=== PATIENT | female | born 1980 | race Caucasian/White ===

== ENCOUNTER 2021-02-11 18:25 | Emergency (ER) | payer OTHER, SELFPAY ==
--- NOTE | ~2021-02-11 | XR_ITS ---
EXAMINATION: XR chest 2V 02/11/2021 19:08 INDICATION: Sternal chest pain PROCEDURE: 2 view chest COMPARISON: No prior studies for comparison. FINDINGS: The lungs are clear. The cardiomediastinal silhouette is within normal limits. There are no pleural effusions. There is no pneumothorax suspected. The lungs are mildly hyperinflated, whic h can be associated with reactive airway disease. IMPRESSION: 1: NO ACUTE CARDIOPULMONARY DISEASE. Reviewed, dictated and finalized at location A.
--- NOTE | 2021-02-11 18:27 | ECG_ITS ---
Measurements Intervals [place] Rate: 95 P: 49 AL: 176 QRS: 120 QRSD: 91 T: 55 QT: 346 QTc: 436 Interpretive Statements SINUS RHYTHM RIGHT AXIS DEVIATION LOW QRS VOLTAGE IN LIMB LEADS CANNOT RULE OUT SEPTAL INFARCT, AGE INDETERMINATE BASELINE ARTIFACT- I, II, AVR, V1, V3-V6 ABNORMAL ECG Electronically Signed On 02-11-2021 19:51:52 CDT by Walter Mendez D.O.
[2021-02-11 18:28] VITALS: BP 71/47; PULSE 136; RESP 18; TEMP 36.9; O2SAT 100
[2021-02-11 18:31] VITALS: BP 96/65; PULSE 136; RESP 18; O2SAT 100
[2021-02-11 18:35] VITALS: BP 122/66; PULSE 109; RESP 29; O2SAT 100
[2021-02-11 18:38] VITALS: PULSE 91
[2021-02-11 19:08] LABS: Basophils Percent Auto 0.5 % (0.2-1.2); Eosinophils Absolute Auto 0.1 K/mm3 (0-0.3); Eosinophils Percent Auto 1.4 % (0-4.4); Hematocrit 36.7 % (37.0-47.0); Hemoglobin 11.7 g/dL (12.0-15.0); Immature Granulocyte Absolute 0.01 K/mm3 (0.00-0.031); Immature Granulocyte Percent A 0.2 % (0-0.5); Lymphocytes Absolute Auto 1.84 K/mm3 (0.9-3.2); Lymphocytes Percent Auto 28.8 % (18.3-44.2); Mean Corpuscular HGB Conc 31.9 g/dl (32-36); Mean Corpuscular Hemoglobin 27.9 pg (26-34); Mean Corpuscular Volume 87.6 fl (80-100); Mean Platelet Volume 11.1 fl (7.4-10.4); Monocytes Absolute Auto 0.4 K/mm3 (0.1-0.6); Monocytes Percent Auto 6.4 % (2.6-8.5); Neutrophils Percent Auto 62.7 % (45.5-73.1); Platelet Count Result 298 k/mm3 (150-375); Red Blood Count 4.19 M/mm3 (4.2-5.4); Red Cell Distribution Width 13.5 % (11.5-14.5); White Blood Count 6.4 K/mm3 (4.5-10.0)
[2021-02-11 19:16] LABS: Anion Gap 10 mmol/L (8-16); Blood Urea Nitrogen 7 mg/dL (7-17); Calcium 9.4 mg/dL (8.4-10.2); Carbon Dioxide 28 mmol/L (22-30); Chloride 102 mmol/L (98-107); Estimated CRCL calculation 84 ml/min; Estimated Glomerular Filt Rate > 60; Glucose 120 mg/dL (65-105); Potassium 3.5 mmol/L (3.4-5.0); Sodium 140 mmol/L (137-145)
[2021-02-11 19:26] LABS: Prothrombin Time 13.4 Seconds (11.1-14.7)
[2021-02-11 19:28] LABS: Partial Thromboplastin Time 28.9 SECONDS (22.3-36.8); Troponin I < 0.012 ng/mL (0.000-0.034)
--- NOTE | 2021-02-11 20:06 | ED.CHESTPAIN ---
HPI - Chest Pain General Chief Complaint: Chest Pain Stated Complaint: chest pain Time Seen by Provider: 02/11/21 18:55 History of Present Illness HPI narrative: Patient is a 40-year-old female with history of cardiac vasospasm who presents ER with chest pain. Left-sided upper chest. Began while walking in [place]. Reports she has been under significant stress because she just moved here from [place] and no one in her family is adjusting well. She reports she took 3 nitros at 15-minute intervals with brief improvement but then return of symptoms. Patient's last cardiac catheterization was in 2018 in [facility]. She reports she has no coronary disease just spasm. She takes amlodipine and metoprolol as well as nitroglycerin to help with her symptoms. She denies any fevers or chills or sweats. No nausea or vomiting. She reports she is feeling lightheaded and that she has some tingling in her fingers. She does not think she is anxious so she did not take her alprazolam. Related Data Home Medications Medication Instructions Recorded Confirmed amlodipine 2.5 mg PO DAILY 02/11/21 02/11/21 nitroglycerin [Nitro-Transderm] 02/11/21 Allergies Allergy/AdvReac Type Severity Reaction Status Date / Time Penicillins Allergy Anaphylactic Verified 02/11/21 19:18 Shock Review of Systems Review of Systems: All systems reviewed & are unremarkable except as noted in HPI and below Constitutional: Constitutional: Denies chills, Denies fever(s) and Denies weakness Cardiovascular: Cardiovascular: Reports chest pain, Denies rapid heart rate and Denies radiating jaw, neck or arm pain Respiratory: Respiratory: Denies cough, Denies dyspnea and Denies wheezing Gastrointestinal: Gastrointestinal: Denies abdominal pain, Denies nausea and Denies vomiting PMFSH Past Medical History Medical History (Updated 02/11/21 @ 23:31 by Iban Peres MD) Coronary vasospasm Surgical History Surgical History (Updated 02/11/21 @ 20:08 by Iban Peres MD) H/O cardiac catheterization H/O section Social History Social History (Updated 02/11/21 @ 20:08 by Iban Peres MD) Smoking status: Never smoker Gender identity (if verbalized by the patient): Female Exam Narrative: Exam Narrative: GENERAL: Anxious-appearing, well-nourished, and in no acute distress. HEAD: Normocephalic, atraumatic. EYES: PERRL and EOMI. CHEST: Clear to auscultation. No respiratory distress. HEART: Regular rate and rhythm. Normal peripheral pulses. ABDOMEN: Soft, nontender, nondistended. EXTREMITIES: Normal range of motion. No edema. SKIN: Warm, dry, no rash. NEURO: Alert and oriented x3. PSYCH: Normal mood and affect. Course Course Emergency Course: Chest pain gone. Troponins undetectable. Discharge home with cardiology and PCP referral. Vital Signs Vital signs: Vital Signs Temperature 98.4 F 02/11/21 18:28 Pulse Rate 136 H 02/11/21 18:28 Respiratory Rate 18 02/11/21 18:28 Blood Pressure 71/47 L 02/11/21 18:28 Pulse Oximetry 100 02/11/21 18:28 Temperature 98.4 F 02/11/21 18:28 Pulse Rate 87 02/11/21 21:21 Respiratory Rate 18 02/11/21 21:21 Blood Pressure 116/61 02/11/21 21:21 Pulse Oximetry 100 02/11/21 21:21 MDM - Chest Pain Lab Data Result diagrams: 02/11/21 18:38 02/11/21 18:38 Labs: Lab Results 02/11/21 02/11/21 02/11/21 Range/Units 18:38 18:38 18:38 WBC 6.4 (4.5-10.0) K/mm3 RBC 4.19 L (4.2-5.4) M/mm3 Hgb 11.7 L (12.0-15.0) g/dL Hct 36.7 L (37.0-47.0) % MCV 87.6 (80-100) fl MCH 27.9 (26-34) pg MCHC 31.9 L (32-36) g/dl RDW 13.5 (11.5-14.5) % Plt Count 298 (150-375) k/mm3 MPV 11.1 H (7.4-10.4) fl Immature Gran % (Auto) 0.2 (0-0.5) % Neut % (Auto) 62.7 (45.5-73.1) % Lymph % (Auto) 28.8 (18.3-44.2) % [place] % (Auto) 6.4 (2.6-8.5) % Eos % (Auto) 1.4 (0-4.4) % Baso % (
[2021-02-11 20:27] LABS: Alveolar/Arterial O2 Gradient 36.6 mmHg; Base Excess ABG 0.5 mEq/l (+/-2.0); Carboxyhemoglobin 0.3 % THb (0-2.0); Fractional Inspired Oxygen 21 %; HCO3 ABG 23.2 mEq/l (22.0-26.0); Methemoglobin ABG 0.1 %THb (0-1.5); Oxygen Content ABG 16.2 %vol (16.0-22.0); Oxyhemoglobin 97.9 % THb (90.0-100.0); PCO2 ABG 31.1 mmHg (35.0-45.0); PO2 ABG 142.7 mmHg (80.0-100.0); Reduced Hemoglobin 1.7 %THb (0-5.0); Total Hemoglobin 11.6 g/dL (12.0-18.0)
[2021-02-11 20:28] LABS: Device ROOM AIR; Modified Allen's Test Pass; Site Drawn RIGHT BRACHIAL
[2021-02-11 21:21] VITALS: BP 116/61; PULSE 87; RESP 18; O2SAT 100
[2021-02-11 22:09] LABS: Troponin I < 0.012 ng/mL (0.000-0.034)
[2021-02-11 23:37] VITALS: BP 118/77; PULSE 80; RESP 18; O2SAT 99
== END 2021-02-11 23:45 | disposition home or self-care (01) ==
PROVIDERS: Emergency Medicine; Emergency Provider Emergency Medicine
DX: R07.9 Chest pain, unspecified (principal); I73.9 Peripheral vascular disease, unspecified; R94.31 Abnormal electrocardiogram [ECG] [EKG]
CPT/HCPCS: 36415; 36600; 71046; 80048; 82375; 82805; 83050; 84484; 85025; 85610; 85730; 93005; 99284

== ENCOUNTER 2022-07-03 10:15 | Emergency (ER) | payer OTHER, SELFPAY ==
[2022-07-03 10:20] VITALS: BP 98/64; PULSE 81; RESP 16; TEMP 36.4; O2SAT 100
[2022-07-03 10:41] LABS: Basophils Percent Auto 0.6 % (0.2-1.2); Eosinophils Absolute Auto 0.1 K/mm3 (0-0.3); Eosinophils Percent Auto 1.7 % (0-4.4); Hematocrit 35.1 % (37.0-47.0); Hemoglobin 11.1 g/dL (12.0-15.0); Immature Granulocyte Absolute 0.01 K/mm3 (0.00-0.031); Immature Granulocyte Percent A 0.3 % (0-0.5); Lymphocytes Absolute Auto 1.12 K/mm3 (0.9-3.2); Lymphocytes Percent Auto 32.5 % (18.3-44.2); Mean Corpuscular HGB Conc 31.6 g/dl (32-36); Mean Corpuscular Hemoglobin 28.6 pg (26-34); Mean Corpuscular Volume 90.5 fl (80-100); Mean Platelet Volume 10.8 fl (7.4-10.4); Monocytes Absolute Auto 0.3 K/mm3 (0.1-0.6); Monocytes Percent Auto 8.7 % (2.6-8.5); Neutrophils Absolute Auto 1.9 K/mm3 (1.3-6.7); Neutrophils Percent Auto 56.2 % (45.5-73.1); Platelet Count Result 207 k/mm3 (150-375); Red Blood Count 3.88 M/mm3 (4.2-5.4); Red Cell Distribution Width 13.8 % (11.5-14.5); White Blood Count 3.5 K/mm3 (4.5-10.0)
[2022-07-03 10:49] LABS: Add Urine Microscopic? YES; Appearance Urine Cloudy (Clear); Bilirubin Urine Negative (Negative); Blood Urine Negative (Negative); Color Urine Amber (Yellow); Glucose Urine UA Negative (Negative); Ketones Urine Trace mg/dL (Negative); Leukocyte Esterase Ur Negative LEU/UL (Negative); Mucus Urine Heavy /lpf; Nitrate Urine Negative (Negative); Protein Urine Negative (Negative); RBC Urine 0-2 /hpf (0-2); Specific Grav Ur 1.025 (1.001-1.035); Squamous Epithelial Cell Urine Occasional /hpf (Few); WBC Urine 0-3 /hpf
[2022-07-03 10:55] LABS: Alanine Aminotransferase 13 U/L (6-35); Albumin Level 4.3 g/dL (3.5-5.1); Alkaline Phosphatase 48 U/L (38-126); Anion Gap 6 mmol/L (8-16); Aspartate Amino Transferase 18 U/L (14-36); Bilirubin,Total 0.3 mg/dL (0.2-1.3); Blood Urea Nitrogen 13 mg/dL (7-17); Calcium 8.7 mg/dL (8.4-10.2); Carbon Dioxide 28 mmol/L (22-30); Chloride 103 mmol/L (98-107); Estimated CRCL calculation 88 ml/min; Estimated Glomerular Filt Rate > 60; Glucose 87 mg/dL (65-110); Lipase 35 U/L (23-300); Potassium 3.9 mmol/L (3.4-5.0); Sodium 137 mmol/L (137-145)
--- NOTE | 2022-07-03 11:43 | PC.NURSE ---
pt up to desk stating that she is leaving. states she is in too much pain to sit in the waiting room
== END 2022-07-03 11:59 | disposition left against medical advice (07) ==
PROVIDERS: Emergency Provider Emergency Medicine
DX: R10.32 Left lower quadrant pain (principal)
CPT/HCPCS: 36415; 80053; 81001; 83690; 85025; 99199

== ENCOUNTER → 2022-10-21 13:36 | Outpatient (CLI) | payer OTHER, SELFPAY ==
--- NOTE | ~2022-10-21 | US_ITS ---
EXAMINATION: US pelvic complete w TV DATE: 10/21/2022 14:22 INDICATION: Vaginal bleeding, uterine ablation TECHNIQUE: Multiple transabdominal and endovaginal sonographic images of the pelvis were obtained. COMPARISON: None. FINDINGS: The uterus measures 9.3 x 3.8 x 5.0 cm. The endometrial complex measures 12 mm and is heter ogeneous in appearance, likely due to endometrial ablation. A nabothian cyst is noted in the cervix. The right ovary measures 3.0 x 2.4 x 3.0 cm. The left ovary measures 2.7 x 1.7 x 2.8 cm. There is nor mal vascular flow in the ovaries. There is a small volume of free fluid in the pelvis. IMPRESSION: 1. No sonographic correlate for the patient's symptoms. Reviewed, dictated and finalized at location B. [employer]
--- NOTE | ~2022-10-21 | US_ITS ---
EXAMINATION: US thyroid DATE: 10/21/2022 14:22 INDICATION: Juwan's thyroiditis. Thyroid nodule. TECHNIQUE: Multiple ultrasound images of the thyroid were obtained. COMPARISON: None. FINDINGS: The right thyroid lobe measures 5.5 x 1.4 x 1.3 cm. The left thyroid lobe measures 4.7 x 1.4 x 1.5 c m. 1.1 cm mildly hypoechoic solid nodule with partially smooth, partially ill-defined margins and wi thout echogenic foci in the inferior left thyroid (TI-RADS 4, moderately suspicious , FNA if >=1.5 cm , annual followup is >=1 cm). There is heterogeneous existing with coarsened echotexture and with dif fuse increased vascular flow on color Doppler throughout both thyroid lobes consistent with provided history of Juwan's thyroiditis. IMPRESSION: 1. 1.1 cm TI RADS 4 left thyroid nodule for which annual ultrasound is recommended. 2. Heterogeneous thyroid with coarsened echotexture and diffuse increased vascular flow consistent wi th provided history of Juwan thyroiditis.. Reviewed, dictated and finalized at location A. [employer] IMPRESSION: 1. 1.1 cm TI RADS 4 left thyroid nodule for which annual ultrasound is recommen ded. 2. Heterogeneous thyroid with coarsened echotexture and diffuse increased vascu lar flow consistent with provided history of Juwan thyroiditis..
== END ==
DX: N83.202 Unspecified ovarian cyst, left side (principal); Z87.42 Personal history of other diseases of the female genital tract; E04.1 Nontoxic single thyroid nodule; E06.3 Autoimmune thyroiditis
CPT/HCPCS: 76536; 76830; 76856

== ENCOUNTER 2023-02-16 07:17 | Emergency (ER) | payer OTHER, SELFPAY ==
--- NOTE | ~2023-02-16 | CT_ITS ---
EXAMINATION: CT abdomen pelvis w con DATE: 02/16/2023 08:39 INDICATION: Right lower quadrant abdominal pain. Nausea, vomiting, diarrhea TECHNIQUE: Computed tomography (CT) of the abdomen and pelvis was performed with 100 CC Omnipaque 350 intravenous contrast. Automated exposure control and iterative reconstruction technique were employe d. Exam dose: 283.15 mGy-cm total exam DLP. COMPARISON: October 21, 2022 pelvic ultrasound examination FINDINGS: The lung bases are clear. Normal heart size. No pericardial or pleural effusion. There are several left renal cysts, largest 6 mm. The spleen measures almost 12 cm vertical dimension, within upper limits of normal. The liver, gallbladder, bile duct, spleen, pancreas, pancreatic duct, and adrenal glands and kidneys are otherwise unremarkable. Postoperative change of the stomach. There is fluid in nondilated small bowel in the mid and lower ab domen, with occasional small bowel air-fluid levels. There are some fluid levels in the colon. No bow el obstruction is evident. The findings suggest mild adynamic ileus or enterocolitis. The appendix is not clearly defined. Clinical correlation is advised. No intraperitoneal free air is detected. Normal caliber of the abdominal aorta. No intraperitoneal or retroperitoneal or pelvic mass lesion or lymphadenopathy is detected. Moderate degenerative disc disease at T12-L1. No suspicious osteolytic or osteoblastic lesions are no neo. The uterus and adnexal areas are unremarkable. There is mild nonspecific free fluid IMPRESSION: Several left renal cysts, measuring up to 6 mm Spleen measures within upper limits of normal size Postoperative change of the stomach Air-fluid levels of small and large bowel without abnormal dilatation or apparent obstruction, possib ly due to enterocolitis or mild adynamic ileus Small nonspecific free fluid collection in the cul-de-sac, possibly physiologic Reviewed, dictated and finalized at Location A. Reviewed, dictated and finalized at location A. IMPRESSION: Several left renal cysts, measuring up to 6 mm Spleen measures within upper limits of normal size Postoperative change of the stomach Air-fluid levels of small and large bowel without abnormal dilatation or appare nt obstruction, possibly due to enterocolitis or mild adynamic ileus Small nonspecific free fluid collection in the cul-de-sac, possibly physiologic
[2023-02-16 07:18] VITALS: BP 97/66; PULSE 95; RESP 20; TEMP 36.6; O2SAT 100
[2023-02-16 07:31] VITALS: BP 91/55; PULSE 99; RESP 14; O2SAT 100
[2023-02-16 07:39] LABS: Basophils Percent Auto 0.3 % (0.2-1.2); Eosinophils Absolute Auto 0.1 K/mm3 (0-0.3); Eosinophils Percent Auto 0.4 % (0-4.4); Hematocrit 37.2 % (37.0-47.0); Hemoglobin 11.9 g/dL (12.0-15.0); Immature Granulocyte Absolute 0.03 K/mm3 (0.00-0.031); Immature Granulocyte Percent A 0.3 % (0-0.5); Lymphocytes Absolute Auto 0.24 K/mm3 (0.9-3.2); Lymphocytes Percent Auto 2.1 % (18.3-44.2); Mean Corpuscular Hemoglobin 27.4 pg (26-34); Mean Corpuscular Volume 85.5 fl (80-100); Mean Platelet Volume 11.1 fl (7.4-10.4); Monocytes Absolute Auto 0.3 K/mm3 (0.1-0.6); Monocytes Percent Auto 2.7 % (2.6-8.5); Neutrophils Absolute Auto 10.7 K/mm3 (1.3-6.7); Neutrophils Percent Auto 94.2 % (45.5-73.1); Platelet Count Result 256 k/mm3 (150-375); Red Blood Count 4.35 M/mm3 (4.2-5.4); Red Cell Distribution Width 13.7 % (11.5-14.5); White Blood Count 11.3 K/mm3 (4.5-10.0)
[2023-02-16 07:46] VITALS: BP 107/67; PULSE 91; RESP 19; O2SAT 97
[2023-02-16 07:55] LABS: Alanine Aminotransferase 14 U/L (6-35); Albumin Level 4.5 g/dL (3.5-5.1); Alkaline Phosphatase 56 U/L (38-126); Anion Gap 9 mmol/L (8-16); Aspartate Amino Transferase 18 U/L (14-36); Bilirubin,Total 0.8 mg/dL (0.2-1.3); Blood Urea Nitrogen 16 mg/dL (7-17); Calcium 8.7 mg/dL (8.4-10.2); Carbon Dioxide 21 mmol/L (22-30); Chloride 105 mmol/L (98-107); Estimated CRCL calculation 90 ml/min; Estimated Glomerular Filt Rate > 60; Glucose 112 mg/dL (65-110); Lipase 48 U/L (23-300); Potassium 4.5 mmol/L (3.4-5.0); Sodium 135 mmol/L (137-145)
[2023-02-16 08:01] VITALS: BP 100/64; PULSE 86; RESP 19; O2SAT 95
--- NOTE | 2023-02-16 08:15 | ED.GENADULT ---
HPI - General Adult General Chief complaint: Nausea/Vomiting/Diarrhea Stated complaint: N/V/D History of Present Illness HPI narrative: 42-year-old female presented the emergency department for evaluation of nausea vomiting diarrhea that started yesterday. Patient reports that she woke up in the morning yesterday she was feeling fine and did go to the gym. Patient states over the course of the day she had onset of worsening symptoms. Patient also describes associated right lower quadrant pain. Patient reports that she does still have her appendix. Related Data Home Medications Medication Instructions Recorded Confirmed amlodipine 2.5 mg tablet 2.5 mg PO DAILY 02/11/21 02/11/21 nitroglycerin 0.2 mg/hr 02/11/21 transdermal 24 hour patch Allergies Allergy/AdvReac Type Severity Reaction Status Date / Time Penicillins Allergy Anaphylactic Verified 02/11/21 19:18 Shock Review of Systems Review of Systems: All systems reviewed & are unremarkable except as noted in HPI and below PMFSH Past Medical History Medical History (Updated 02/16/23 @ 10:15 by Kodi Weiss MD) Coronary vasospasm Surgical History Surgical History (Updated 02/11/21 @ 20:08 by Iban Peres MD) H/O cardiac catheterization H/O section Social History Social History (Updated 02/11/21 @ 20:08 by Iban Peres MD) Smoking status: Never smoker Gender identity (if verbalized by the patient): Female Exam Narrative: APPEARANCE: Well appearing, no pain, no distress, well-nourished. HEAD: normocephalic, atraumatic. EYES: PERRLA/EOMI, conjunctivae clear. NOSE: Normal no drainage EARS:TMS clear with good light reflex. THROAT: Pharynx clear, no exudate. NECK: Supple. No adenopathy, no masses. RESPIRATORY: Airway patent, respirations nonlabored. Clear to auscultation bilaterally, no rales, rhonchi, wheezing. CARDIOVASCULAR: Regular rate and rhythm without murmurs rubs or gallops. ABDOMINAL: Right lower quadrant tenderness to palpation. Normal bowel sounds MUSCULOSKELETAL: Moves all extremities. Strength/ROM intact, No edema, No calf tenderness. NEURO: Alert. Cranial nerves II through XII intact. Grossly intact SKIN: Warm, dry. Normal Color PSYCHIATRIC: Normal affect/mood. Course Course Emergency Course: 42-year-old female presented the ED for evaluation of nausea vomiting diarrhea with associated right lower quadrant pain. Patient is being treated with IV Zofran and IV fluids. CT scan to evaluate for appendicitis versus colitis versus diverticulitis is being ordered. Patient declined any medications for pain control at this time. Patient was updated on the plan for the work-up and treatment plan. Patient does feel improved with treatment. Patient did have a mild leukocytosis of 11.3. Patient's CMP had no significant abnormalities. UA did have plus for ketones. Patient received 3 L of IV fluids and does feel improved. Patient is tolerating p.o. CT scan showed no obstruction but did show possible enterocolitis versus ileus. Patient was updated on the results of her labs and imaging. Patient was advised to follow a clear liquid diet for the next few days and she will be provided Zofran for outpatient treatment. Patient was educated on reasons to return to the emergency room. All questions and concerns were addressed and patient was well-appearing at time of discharge Vital Signs Vital signs: Vital Signs Temperature 98 F 02/16/23 07:18 Pulse Rate 95 02/16/23 07:18 Respiratory Rate 20 02/16/23 07:18 Blood Pressure 97/66 L 02/16/23 07:18 Pulse Oximetry 100 02/16/23 07:18 Oxygen Delivery Room Air 02/16/23 07:18 Temperature 98 F 02/16/23 07:18 Pulse Rate 72 02/16/23 12:09 Respiratory Rate 15 02/16/23 12:09 Blood Pressure 99/57 L 02/16/23 12:09 Pulse Oximetry 99 02/16/23 12:09 Oxygen Delivery Room Air 02/16/23 07:18 Medical Decision Making Differentia
[2023-02-16] MEDS: ONDANSETRON INJ 4 MG/2 ML VIAL IV PUSH (08:23)
[2023-02-16 08:27] LABS: Appearance Urine Clear (Clear); Bacteria Urine None Seen /hpf; Bilirubin Urine Negative (Negative); Blood Urine Negative (Negative); Color Urine Dark Yellow (Yellow); Glucose Urine UA Negative (Negative); Ketones Urine 4+ mg/dL (Negative); Leukocyte Esterase Ur 1+ LEU/UL (Negative); Need Manual Microscopic Reviewed; Nitrate Urine Negative (Negative); Non Pathogenic Casts 0-2; Protein Urine Trace mg/dL (Negative); RBC Urine 0-2 /hpf (0-2); Specific Grav Ur 1.021 (1.001-1.035); Squamous Epithelial Cell Urine Occasional /hpf (Few); WBC Urine 0-5 /hpf
[2023-02-16] MEDS: SODIUM CHLORIDE 0.9% IV 1,000 ML 999 ML IV CONT ×2 (08:28→10:16)
[2023-02-16 08:31] LABS: Add Urine Microscopic? YES
[2023-02-16] MEDS: HYDROmorphone HCL INJ (*CRX) 1 MG/ML SYR 0.5 MG IV PUSH (08:44)
[2023-02-16 09:46] VITALS: BP 99/59; PULSE 97; RESP 16; O2SAT 98
[2023-02-16 12:09] VITALS: BP 99/57; PULSE 72; RESP 15; O2SAT 99
== END 2023-02-16 11:58 | disposition home or self-care (01) ==
PROVIDERS: Emergency Provider Emergency Medicine
DX: R11.2 Nausea with vomiting, unspecified (principal); R19.7 Diarrhea, unspecified; R10.31 Right lower quadrant pain
CPT/HCPCS: 36415; 74177; 80053; 81001; 81025; 83690; 85025; 96361; 96374; 96375; 99284; J1170; J2405; J7030; Q9967